=== PATIENT | female | born 2000 | race African-American/Black ===

== ENCOUNTER 2021-01-05 12:59 | Emergency (ER) | payer MEDICAID ==
[~2021-01-05] VITALS: Ht 160 cm; Wt 86.0 kg
[2021-01-05] MEDS ORDERED: SODIUM CHLORIDE 0.9% 1,000 ML IV ONE (14:15)
[2021-01-05] MEDS ORDERED: ACETAMINOPHEN 325MG TABLET PO ONE (14:15)
[2021-01-05 14:37] LABS: HEMATOCRIT 38.2 % (36.0-48.0); HEMOGLOBIN 12.9 g/dL (12.0-16.0); MEAN CORPUSCULAR HEMOGLOBIN 30.8 pg (28.0-32.0); MEAN CORPUSCULAR VOLUME 91.2 fL (81.0-99.0); PLATELET 275 x1000/uL (130-400); RED BLOOD CELL COUNT 4.19 mill/uL (4.2-5.4); RED CELL DISTRIBUTION WIDTH 13.9 % (11.6-14.6)
[2021-01-05 14:44] LABS: CHLORIDE 108 mEq/L (98-107)
[2021-01-05 14:46] LABS: HCG SCREEN POSITIVE
[2021-01-05 15:13] LABS: B-HCG QUANTITATIVE 4754 mIU/mL (<3)
[2021-01-05] MEDS ORDERED: TOPUD MT (16:33)
[2021-01-05 16:45] VITALS: BP 94/43
== END 2021-01-05 17:25 | disposition home or self-care (01) ==
LOC: ER 12:59
DX: O03.9 Complete or unspecified spontaneous abortion without complication (principal); F17.210 Nicotine dependence, cigarettes, uncomplicated; Z87.42 Personal history of other diseases of the female genital tract; Z98.890 Other specified postprocedural states
CPT/HCPCS: 36415; 76801; 76817; 80048; 84702; 84703; 85027; 86592; 86850; 86900; 86901; 96360; 99284; J7030